=== PATIENT | female | born 1990 ===

== ENCOUNTER 2022-08-22 09:36 | Inpatient (IN) | payer BC ==
[2022-08-22] MEDS ORDERED: Oxytocin 10 Units/1 ML SDV IM PRN (09:48)
[2022-08-22] MEDS ORDERED: Methylergonovine 0.2 MG Tab PO PRN (09:48)
[2022-08-22] MEDS ORDERED: Citric Acid/Sodium Citrate Solution 30 ML Cup PO ONE (09:48)
[2022-08-22] MEDS ORDERED: Sodium Chloride 0.9% 10 ML Syringe FLUSH PRN (09:48)
[2022-08-22] MEDS ORDERED: ceFAZolin 2 GM in Premix Bag 1 BAG IV ONE (09:48)
[2022-08-22] MEDS ORDERED: Carboprost Tromethamine 250 MCG/1 ML Amp IM PRN ×2 (09:48→13:11)
[2022-08-22] MEDS ORDERED: Tranexamic Acid 1,000 MG in Sodium Chloride 0.9% 100 ML IV PRN ×2 (09:48→13:11)
[2022-08-22] MEDS ORDERED: Oxytocin/Normal Saline 30 UNIT/500 ML BAG IV SCH (10:00)
[2022-08-22] MEDS ORDERED: Lactated Ringers 1,000 ML IV SCH (10:00)
[2022-08-22] MEDS: Lactated Ringers 1,000 ML IV SCH ×4 (10:15→21:06)
[2022-08-22] MEDS ORDERED: Oxytocin/Normal Saline 30 UNIT/500 ML BAG ONE (11:43)
[2022-08-22] MEDS ORDERED: Acetaminophen 325 MG Tab PO PRN (13:11)
[2022-08-22] MEDS ORDERED: Misoprostol 400 MCG (4 X 100 MCG TAB) RECTAL PRN (13:11)
[2022-08-22] MEDS ORDERED: Acetaminophen/oxyCODONE 325-5 MG Tab PO PRN (13:11)
[2022-08-22] MEDS ORDERED: Methylergonovine 0.2 MG/1 ML Amp IM PRN (13:11)
[2022-08-22] MEDS ORDERED: Naloxone 2 MG/2 ML Syringe IVPUSH PRN (13:11)
[2022-08-22] MEDS ORDERED: Ondansetron 4 MG/2 ML SDV IVPUSH PRN (13:11)
[2022-08-22] MEDS ORDERED: ePHEDrine 50 MG/ML SDV IVPUSH PRN (13:11)
[2022-08-22] MEDS ORDERED: Ibuprofen 800 MG Tab PO PRN (14:00)
[2022-08-22] MEDS: diphenhydrAMINE 50 MG/ML SDV IVPUSH PRN ×2 (15:48→22:21)
[2022-08-22] MEDS: Ketorolac 30 MG/ML SDV IVPUSH SCH (17:52)
[2022-08-22] MEDS: Simethicone 80 MG Tab.Chew PO SCH ×2 (17:52→22:21)
[2022-08-22] MEDS: Sodium Chloride 0.9% 10 ML Syringe FLUSH SCH (21:00)
[2022-08-22] MEDS: Docusate Sodium 100 MG Cap PO PRN (22:21)
[2022-08-23] MEDS: Ketorolac 30 MG/ML SDV IVPUSH SCH ×2 (01:10→06:30)
[2022-08-23] MEDS: Simethicone 80 MG Tab.Chew PO SCH ×2 (08:26→14:03)
[2022-08-23] MEDS: Docusate Sodium 100 MG Cap PO PRN (08:27)
[2022-08-23] MEDS: Acetaminophen/oxyCODONE 325-5 MG Tab PO PRN ×2 (08:28→14:04)
[2022-08-23] MEDS: Sodium Chloride 0.9% 10 ML Syringe FLUSH SCH (08:55)
[2022-08-23] MEDS ORDERED: Prenatal Multivitamin with Calcium/Folic Acid/Iron Tab PO SCH (09:00)
[2022-08-23] MEDS ORDERED: Ascorbic Acid 500 MG Tab PO SCH (09:00)
[2022-08-23] MEDS ORDERED: Ferrous Sulfate 325 MG Tab PO SCH (09:00)
== END 2022-08-23 14:45 | disposition home or self-care (01) | DRG 540 ==
LOC: DL.OB 09:36 → OBSVTOIN 12:30
PROVIDERS: ADMIT Family Medicine; ATTEND Family Medicine
PROC: 10D00Z1 Extraction of Products of Conception, Low, Open Approach (ICD-10-PCS; principal; 2022-08-22)
DX: O34.211 Maternal care for low transverse scar from previous cesarean delivery (principal); Z88.0 Allergy status to penicillin; Z88.2 Allergy status to sulfonamides; Z88.1 Allergy status to other antibiotic agents; Z20.822 Contact with and (suspected) exposure to COVID-19; Z3A.39 39 weeks gestation of pregnancy; Z37.0 Single live birth
CPT/HCPCS: 01961; 36415; 59025; 85025; 85027; 86850; 86900; 86901; 94010; A9270-GY; J0690; J1200; J1885; J2590; J3490; J7120; U0002